=== PATIENT | male | born 1950 ===

== ENCOUNTER 2019-03-31 15:46 | Outpatient (REF) | payer MEDICARE, SELFPAY ==
[2019-03-31 21:16] LABS: Abs Immature Grans 0.02 k/cumm (0.0-0.09); Absolute Basophil Count 0.07 k/cumm (0.0-0.2); Absolute Eosinophil Count 0.16 k/cumm (0.0-0.7); Absolute Lymphocyte Count 2.56 k/cumm (1.2-3.4); Absolute Monocyte Count 0.73 k/cumm (0.11-0.7); Absolute Neutrophil Count 4.47 k/cumm (1.2-6.7); Basophils % 0.9; HCT 42.6 % (40.0-50.0); HGB 13.6 g/dL (13.5-17.5); Immature Grans % 0.2; Mean Corp. HGB Concentration 31.9 g/dL (32.0-36.0); Mean Corpuscular Volume 100.2 fL (80-95); Mean Platelet Volume 10.9 fL (8.0-11.0); Monocytes % 9.1; Neutrophils % 55.8; Platelet Count 245 x1000/uL (130-400); RBC 4.25 m/cumm (4.50-6.00); RBC Distribution Width 12.9 % (11.8-14.1); White Blood Cell Count 8.01 k/cumm (4.4-10.8)
[2019-03-31 21:59] LABS: ALT 22 U/L (16-63); AST 14 U/L (15-37); Albumin 3.8 g/dL (3.4-5.0); Alkaline Phosphatase 64 U/L (46-116); Anion Gap 10.6 mmol/L (3-11); BUN 21 mg/dL (7-18); Bilirubin, Total 0.3 mg/dL (0.2-1.0); CO2 29.4 mmol/L (21.0-32.0); CREATININE 1.32 mg/dL (0.70-1.30); Calcium 9.5 mg/dL (8.5-10.1); Chloride 103 mmol/L (98-107); Estimated GFR 53.62 (mL/min/1.73m2); Glucose 230 mg/dL (74-106); Potassium 4.9 mmol/L (3.5-5.1); Sodium 143 mmol/L (136-145); TSH 2.53 uIU/mL (0.36-3.74); Total Protein 6.9 g/dL (6.4-8.2); Vitamin B12 295 pg/mL (193-986)
== END 2019-03-31 16:06 ==
LOC: NCHCN 15:46
PROVIDERS: PCP Family Medicine; Visit Provider Internal Medicine
DX: E11.9 Type 2 diabetes mellitus without complications (principal); E53.8 Deficiency of other specified B group vitamins; D69.6 Thrombocytopenia, unspecified; R51 Headache
CPT/HCPCS: 80053; 82607; 84443; 85025

== ENCOUNTER 2019-10-23 15:09 | Outpatient (REF) | payer MEDICARE, MEDICAID, SELFPAY ==
[2019-10-23 21:27] LABS: ALT 42 U/L (16-63); AST 38 U/L (15-37); Alkaline Phosphatase 55 U/L (46-116); Anion Gap 7.7 mmol/L (3-11); BUN 33 mg/dL (7-18); Bilirubin, Total 0.4 mg/dL (0.2-1.0); CO2 27.3 mmol/L (21.0-32.0); CREATININE 1.17 mg/dL (0.70-1.30); Calcium 8.3 mg/dL (8.5-10.1); Chloride 88 mmol/L (98-107); Glucose 184 mg/dL (74-106); NT-proBNP 1607 pg/mL (<300); Potassium 5.5 mmol/L (3.5-5.1); TSH 0.37 uIU/mL (0.36-3.74)
[2019-10-23 21:54] LABS: Sodium 123 mmol/L (136-145)
== END 2019-10-23 15:29 ==
LOC: NCHCN 15:09
PROVIDERS: PCP Family Medicine; Visit Provider Internal Medicine
DX: R60.0 Localized edema (principal); M19.90 Unspecified osteoarthritis, unspecified site; R25.1 Tremor, unspecified
CPT/HCPCS: 80053; 83880; 84443

== ENCOUNTER 2019-11-04 14:02 | Outpatient (REF) | payer MEDICARE, MEDICAID, SELFPAY ==
[2019-11-04 21:52] LABS: Anion Gap 8.5 mmol/L (3-11); BUN 36 mg/dL (7-18); CO2 32.5 mmol/L (21.0-32.0); CREATININE 2.11 mg/dL (0.70-1.30); Calcium 9.3 mg/dL (8.5-10.1); Chloride 90 mmol/L (98-107); Estimated GFR 31.12 (mL/min/1.73m2); Glucose 129 mg/dL (74-106); Potassium 4.2 mmol/L (3.5-5.1); Sodium 131 mmol/L (136-145)
== END 2019-11-04 14:22 ==
LOC: NCHCN 14:02
PROVIDERS: PCP Family Medicine; Visit Provider Family Medicine
DX: I10 Essential (primary) hypertension (principal)
CPT/HCPCS: 80048

== ENCOUNTER 2019-11-12 21:21 | Outpatient (REF) | payer MEDICARE, MEDICAID, SELFPAY ==
[2019-11-12 20:49] LABS: Abs Immature Grans 0.02 10^3/uL (0.0-0.06); Absolute Basophil Count 0.08 10^3/uL (0.0-0.2); Absolute Eosinophil Count 0.15 10^3/uL (0.0-0.7); Absolute Monocyte Count 0.71 10^3/uL (0.1-0.8); Absolute Neutrophil Count 3.59 10^3/uL (1.2-6.7); Basophils % 1.3; Eosinophils % 2.4; HCT 38.5 % (40.0-50.0); Immature Grans % 0.3; Lymphocytes % 27.2; MCH 32.4 pg (27.0-33.0); MCHC 31.2 % (32.0-36.0); MCV 104.1 fL (80-95); MPV 9.6 fL (8.0-11.0); Monocytes % 11.4; Neutrophils % 57.4; Nucleated RBC 0 %; Platelet Count 349 10^3/uL (130-400); RDW-SD 53.7 fL; WBC 6.25 10^3/uL (4.4-10.8)
[2019-11-12 21:06] LABS: ALT 26 U/L (16-63); AST 22 U/L (15-37); Alkaline Phosphatase 47 U/L (46-116); Anion Gap 8.3 mmol/L (3-11); BUN 33 mg/dL (7-18); Bilirubin, Total 0.3 mg/dL (0.2-1.0); CO2 30.7 mmol/L (21.0-32.0); CREATININE 1.64 mg/dL (0.70-1.30); Calcium 9.4 mg/dL (8.5-10.1); Chloride 99 mmol/L (98-107); Estimated GFR 41.62 (mL/min/1.73m2); Glucose 195 mg/dL (74-106); Potassium 4.2 mmol/L (3.5-5.1); Sodium 138 mmol/L (136-145); Total Protein 6.7 g/dL (6.4-8.2)
== END 2019-11-12 21:41 ==
LOC: NCHCN 21:21
PROVIDERS: PCP Family Medicine; Visit Provider Registered Nurse
DX: N17.9 Acute kidney failure, unspecified (principal); E87.1 Hypo-osmolality and hyponatremia
CPT/HCPCS: 80053; 85025

== ENCOUNTER 2019-12-03 20:31 | Outpatient (REF) | payer MEDICARE, MEDICAID, SELFPAY ==
[2019-12-03 20:05] LABS: BUN 21 mg/dL (7-18); CREATININE 1.41 mg/dL (0.70-1.30); Calcium 9.4 mg/dL (8.5-10.1); Chloride 100 mmol/L (98-107); Estimated GFR 49.55 (mL/min/1.73m2); Glucose 219 mg/dL (74-106); Potassium 4.4 mmol/L (3.5-5.1); Sodium 139 mmol/L (136-145)
== END 2019-12-03 20:51 ==
LOC: NCHCN 20:31
PROVIDERS: PCP Family Medicine; Visit Provider Internal Medicine
DX: I10 Essential (primary) hypertension (principal); N17.9 Acute kidney failure, unspecified; I25.10 Atherosclerotic heart disease of native coronary artery without angina pectoris
CPT/HCPCS: 80048

== ENCOUNTER 2019-12-04 22:24 | Outpatient (REF) | payer MEDICARE, MEDICAID, SELFPAY ==
[2019-12-04 21:23] LABS: Bilirubin Negative (Negative); Blood Negative (Negative); Clarity Clear (Clear); Glucose 100 mg/dL (Negative); Ketones Negative (Negative); Leukocyte Esterase Negative (Negative); Nitrite Negative (Negative); Specific Gravity 1.025 (1.005-1.025); Urobilinogen 0.2 EU/dL (Up TO 0.2); pH 5.5 (5-8)
[2019-12-04 21:25] LABS: COMMENT (LAB VIEW ONLY) 70.47 mg/dL
[2019-12-04 21:27] LABS: Microalb ug/mg Crea 669.1 ug/mg Cr
[2019-12-04 21:48] LABS: Bacteria Negative HPF (Negative); C & S Indicated? No; Casts Negative LPF (Negative); Crystals Negative HPF (Negative); Epithelial Cells Negative HPF (Negative); Mucus Negative (Negative); Other Cells Negative (Negative); RBC Negative HPF (0-2); WBC 0-2 HPF (0-5)
== END 2019-12-04 22:44 ==
LOC: NCHCN 22:24
PROVIDERS: PCP Family Medicine; Visit Provider Internal Medicine
DX: E11.9 Type 2 diabetes mellitus without complications (principal); E53.8 Deficiency of other specified B group vitamins; D69.6 Thrombocytopenia, unspecified; R51 Headache; Z79.4 Long term (current) use of insulin; N17.9 Acute kidney failure, unspecified; E87.1 Hypo-osmolality and hyponatremia
CPT/HCPCS: 81003; 81015; 82043; 82570

== ENCOUNTER 2020-01-06 22:11 | Outpatient (REF) | payer MEDICARE, MEDICAID, SELFPAY ==
[2020-01-06 21:54] LABS: Anion Gap 6.7 mmol/L (3-11); BUN 30 mg/dL (7-18); CO2 28.3 mmol/L (21.0-32.0); CREATININE 1.72 mg/dL (0.70-1.30); Chloride 102 mmol/L (98-107); Estimated GFR 39.39 (mL/min/1.73m2); Glucose 225 mg/dL (74-106); Potassium 5.3 mmol/L (3.5-5.1); Sodium 137 mmol/L (136-145)
== END 2020-01-06 22:31 ==
LOC: LBN 22:11
PROVIDERS: PCP Family Medicine; Visit Provider Internal Medicine
DX: E11.40 Type 2 diabetes mellitus with diabetic neuropathy, unspecified (principal); I25.10 Atherosclerotic heart disease of native coronary artery without angina pectoris
CPT/HCPCS: 80048

== ENCOUNTER 2020-02-02 18:28 | Outpatient (REF) | payer MEDICARE, MEDICAID, SELFPAY ==
[2020-02-02 15:58] LABS: BUN 26 mg/dL (7-18); CREATININE 1.45 mg/dL (0.70-1.30); Calcium 9.1 mg/dL (8.5-10.1); Chloride 104 mmol/L (98-107); Estimated GFR 47.98 (mL/min/1.73m2); Glucose 223 mg/dL (74-106); Potassium 5.3 mmol/L (3.5-5.1); Sodium 138 mmol/L (136-145)
== END 2020-02-02 18:48 ==
LOC: NCHCN 18:28
PROVIDERS: PCP Family Medicine; Visit Provider Internal Medicine
DX: I50.32 Chronic diastolic (congestive) heart failure (principal)
CPT/HCPCS: 80048

== ENCOUNTER 2021-03-21 19:22 | Outpatient (REF) | payer MEDICARE, MEDICAID, SELFPAY ==
[2021-03-21 22:21] LABS: Anion Gap 8.8 mmol/L (3-11); BUN 30 mg/dL (7-18); CO2 26.2 mmol/L (21.0-32.0); CREATININE 1.6 mg/dL (0.70-1.30); Calcium 8.8 mg/dL (8.5-10.1); Chloride 107 mmol/L (98-107); Glucose 216 mg/dL (74-106); Potassium 4.5 mmol/L (3.5-5.1); Sodium 142 mmol/L (136-145)
[2021-03-21 22:24] LABS: Hemoglobin A1C 9.3 % (<5.7)
== END 2021-03-21 19:23 | disposition home or self-care (01) ==
LOC: NCHCN 19:22
PROVIDERS: PCP Family Medicine; Visit Provider Internal Medicine
DX: E11.9 Type 2 diabetes mellitus without complications (principal); I10 Essential (primary) hypertension; N18.31 Chronic kidney disease, stage 3a
CPT/HCPCS: 80048; 83036

== ENCOUNTER 2021-08-31 20:15 | Outpatient (REF) | payer MEDICARE, MEDICAID, SELFPAY ==
[2021-08-31 20:52] LABS: Abs Immature Grans 0.03 10^3/uL (0.0-0.06); Absolute Basophil Count 0.08 10^3/uL (0.0-0.2); Absolute Eosinophil Count 0.17 10^3/uL (0.0-0.7); Absolute Lymphocyte Count 1.75 10^3/uL (1.2-3.4); Absolute Monocyte Count 0.66 10^3/uL (0.1-0.8); Absolute Neutrophil Count 4.42 10^3/uL (1.2-6.7); Basophils % 1.1; Eosinophils % 2.4; HCT 45.1 % (40.0-50.0); HGB 14.8 g/dL (13.5-17.5); Immature Grans % 0.4; Lymphocytes % 24.6; MCH 34.4 pg (27.0-33.0); MCHC 32.8 % (32.0-36.0); MCV 105 fL (80-95); MPV 10.2 fL (8.0-11.0); Monocytes % 9.3; Neutrophils % 62.2; Platelet Count 216 10^3/uL (130-400); RDW 15.1 % (11.8-14.1); RDW-SD 58.7 fL; WBC 7.11 10^3/uL (4.4-10.8)
[2021-08-31 21:14] LABS: ALT 17 U/L (16-63); AST 13 U/L (15-37); Albumin 3.7 g/dL (3.4-5.0); Alkaline Phosphatase 76 U/L (46-116); Anion Gap 12.4 mmol/L (3-11); BUN 41 mg/dL (7-18); Bilirubin, Total 0.2 mg/dL (0.2-1.0); CO2 23.6 mmol/L (21.0-32.0); CREATININE 2.1 mg/dL (0.70-1.30); Calcium 8.9 mg/dL (8.5-10.1); Chloride 106 mmol/L (98-107); Estimated GFR 31.11 (mL/min/1.73m2); Glucose 290 mg/dL (74-106); Magnesium 2.4 mg/dL (1.8-2.4); Potassium 4.3 mmol/L (3.5-5.1); Sodium 142 mmol/L (136-145); TSH 0.96 uIU/mL (0.36-3.74)
== END 2021-08-31 20:16 | disposition home or self-care (01) ==
LOC: NCHCN 20:15
PROVIDERS: PCP Family Medicine; Visit Provider Registered Nurse
DX: I10 Essential (primary) hypertension (principal); G31.84 Mild cognitive impairment of uncertain or unknown etiology; Z91.81 History of falling
CPT/HCPCS: 80053; 83735; 84443; 85025

== ENCOUNTER 2021-09-14 21:02 | Outpatient (REF) | payer MEDICARE, MEDICAID, SELFPAY ==
[2021-09-14 21:31] LABS: Anion Gap 10.7 mmol/L (3-11); BUN 40 mg/dL (7-18); CO2 26.3 mmol/L (21.0-32.0); CREATININE 1.8 mg/dL (0.70-1.30); Chloride 104 mmol/L (98-107); Estimated GFR 37.17 (mL/min/1.73m2); Glucose 190 mg/dL (74-106); Potassium 4.8 mmol/L (3.5-5.1); Sodium 141 mmol/L (136-145)
== END 2021-09-14 21:03 | disposition home or self-care (01) ==
LOC: NCHCN 21:02
PROVIDERS: PCP Family Medicine; Visit Provider Registered Nurse
DX: N18.31 Chronic kidney disease, stage 3a (principal)
CPT/HCPCS: 80048

== ENCOUNTER 2022-02-15 16:21 | Outpatient (REF) | payer MEDICARE, MEDICAID, SELFPAY ==
[2022-02-15 20:42] LABS: BUN 49 mg/dL (7-18); CREATININE 2.2 mg/dL (0.70-1.30); Calcium 9.5 mg/dL (8.5-10.1); Chloride 104 mmol/L (98-107); Estimated GFR 30.85 (mL/min/1.73m2); Glucose 281 mg/dL (74-106); Potassium 5.5 mmol/L (3.5-5.1); Sodium 141 mmol/L (136-145)
== END 2022-02-15 16:22 | disposition home or self-care (01) ==
LOC: NCHCN 16:21
PROVIDERS: PCP Family Medicine; Visit Provider Family Medicine
DX: I25.10 Atherosclerotic heart disease of native coronary artery without angina pectoris (principal); I10 Essential (primary) hypertension
CPT/HCPCS: 80048

== ENCOUNTER 2022-05-24 14:55 | Outpatient (REF) | payer MEDICARE, MEDICAID, SELFPAY ==
[2022-05-24 21:26] LABS: Anion Gap 9.2 mmol/L (3-11); BUN 57 mg/dL (7-18); CO2 27.8 mmol/L (21.0-32.0); CREATININE 2.3 mg/dL (0.70-1.30); Calcium 9.5 mg/dL (8.5-10.1); Chloride 105 mmol/L (98-107); Estimated GFR 29.25 (mL/min/1.73m2); Glucose 171 mg/dL (74-106); Sodium 142 mmol/L (136-145); Uric Acid 5.9 mg/dL (3.5-7.2)
[2022-05-24 22:27] LABS: Potassium 6.1 mmol/L (3.5-5.1)
== END 2022-05-24 14:56 | disposition home or self-care (01) ==
LOC: NCHCN 14:55
PROVIDERS: PCP Family Medicine; Visit Provider Family Medicine
DX: E11.9 Type 2 diabetes mellitus without complications (principal); I10 Essential (primary) hypertension; M10.9 Gout, unspecified
CPT/HCPCS: 80048; 84550

== ENCOUNTER 2022-05-29 17:51 | Outpatient (REF) | payer MEDICARE, MEDICAID, SELFPAY ==
[2022-05-29 21:02] LABS: Anion Gap 7.9 mmol/L (3-11); BUN 51 mg/dL (7-18); CO2 25.1 mmol/L (21.0-32.0); CREATININE 1.9 mg/dL (0.70-1.30); Calcium 9.1 mg/dL (8.5-10.1); Chloride 106 mmol/L (98-107); Estimated GFR 36.79 (mL/min/1.73m2); Glucose 271 mg/dL (74-106); Potassium 5.4 mmol/L (3.5-5.1); Sodium 139 mmol/L (136-145)
== END 2022-05-29 17:52 | disposition home or self-care (01) ==
LOC: NCHCN 17:51
PROVIDERS: PCP Family Medicine; Visit Provider Family Medicine
DX: I10 Essential (primary) hypertension (principal); N18.31 Chronic kidney disease, stage 3a
CPT/HCPCS: 80048

== ENCOUNTER 2022-10-30 19:16 | Outpatient (REF) | payer MEDICARE, MEDICAID, SELFPAY ==
[2022-10-30 16:51] LABS: ALT 19 U/L (16-63); AST 15 U/L (15-37); Albumin 3.7 g/dL (3.4-5.0); Alkaline Phosphatase 75 U/L (46-116); BUN 45 mg/dL (7-18); Bilirubin, Total 0.3 mg/dL (0.2-1.0); Calcium 9.1 mg/dL (8.5-10.1); Chloride 103 mmol/L (98-107); Estimated GFR 34.38 (mL/min/1.73m2); Glucose 285 mg/dL (74-106); Sodium 139 mmol/L (136-145); Total Protein 7.2 g/dL (6.4-8.2)
[2022-10-30 16:59] LABS: Potassium 6.4 mmol/L (3.5-5.1)
[2022-10-30 17:17] LABS: COMMENT (LAB VIEW ONLY) 132.73 mg/dL
== END 2022-10-30 19:17 | disposition home or self-care (01) ==
LOC: NCHCN 19:16
PROVIDERS: PCP Family Medicine; Visit Provider Family Medicine
DX: N18.31 Chronic kidney disease, stage 3a (principal)
CPT/HCPCS: 80053; 82043; 82570

== ENCOUNTER 2023-06-20 17:48 | Outpatient (REF) | payer MEDICARE, MEDICAID, SELFPAY | END 2023-06-20 17:49 | disposition home or self-care (01) | LOC: NCHCN 17:48 | PROVIDERS: PCP Family Medicine; Visit Provider Family Medicine | DX: E11.8 Type 2 diabetes mellitus with unspecified complications (principal) | CPT/HCPCS: 83036 ==

== ENCOUNTER 2024-08-08 22:26 | Outpatient (REF) | payer MEDICARE, MEDICAID, SELFPAY ==
[2024-08-08 21:41] LABS: HCT 38.1 % (40.0-50.0); HGB 11.3 g/dL (13.5-17.5); MCH 30.9 pg (27.0-33.0); MCHC 29.7 % (32.0-36.0); MCV 104 fL (80-95); MPV 10.5 fL (8.0-11.0); Platelet Count 196 10^3/uL (130-400); RBC 3.66 10^6/uL (4.36-5.78); RDW 16.2 % (11.8-14.1); RDW-SD 62.6 fL; WBC 8.33 10^3/uL (4.4-10.8)
[2024-08-08 22:06] LABS: Anion Gap 6.6 mmol/L (3-11); BUN 65 mg/dL (7-18); CO2 30.4 mmol/L (21.0-32.0); Chloride 103 mmol/L (98-107); Estimated GFR 16.77 (mL/min/1.73m2); Glucose 70 mg/dL (74-106); PHOSPHORUS 5.5 mg/dL (2.6-4.7); Potassium 5.2 mmol/L (3.5-5.1); Sodium 140 mmol/L (136-145)
[2024-08-08 22:16] LABS: CREATININE 3.6 mg/dL (0.70-1.30)
== END 2024-08-08 22:27 | disposition home or self-care (01) ==
LOC: LBN 22:26
PROVIDERS: PCP Family Medicine; Visit Provider Nurse Practitioner Adult Health
DX: N18.4 Chronic kidney disease, stage 4 (severe) (principal)
CPT/HCPCS: 80048; 85027; 84100